=== PATIENT | male | born 1990 | race Caucasian/White ===

== ENCOUNTER 2019-01-15 22:56 | Emergency (ER) | payer OTHER ==
[~2019-01-15] VITALS: Ht 182.9 cm; Wt 111.1 kg
[2019-01-16] MEDS ORDERED: NAPROSYN500 MG PO
[2019-01-16 00:43] VITALS: BP 104/67
== END 2019-01-16 00:40 | disposition home or self-care (01) ==
LOC: ER 22:56
DX: M76.32 Iliotibial band syndrome, left leg (principal); F17.210 Nicotine dependence, cigarettes, uncomplicated; Z88.8 Allergy status to other drugs, medicaments and biological substances